=== PATIENT | female | born 1990 | race African-American/Black ===

== ENCOUNTER 2021-11-09 08:20 | Outpatient (RCR) | payer OTHER, SELFPAY ==
[2021-11-09] MEDS: RHO(D) IMMUNE GLOBULIN 300 MCG/2 ML SYRINGE IM (17:11)
== END 2022-01-27 08:38 | disposition home or self-care (01) ==
LOC: ANHLAB 08:20
PROVIDERS: PCP Nurse Practitioner; Visit Provider Obstetrics & Gynecology
DX: Z34.90 Encounter for supervision of normal pregnancy, unspecified, unspecified trimester (principal); Z3A.00 Weeks of gestation of pregnancy not specified
CPT/HCPCS: 36415; 85461; 90384; 96372; J2790

== ENCOUNTER 2022-01-16 19:54 | Inpatient (IN) | payer OTHER, SELFPAY ==
[2022-01-16] VITALS (41 sets, daily range): BP systolic 79–134; BP diastolic 29–102; PULSE 57–195; TEMP 36.3; O2SAT 98–100; BMI 39.5
[2022-01-16] MEDS: LACTATED RINGERS 1,000 ML 125 ML IV CONT (21:44)
[2022-01-16 21:55] LABS: Basophils Absolute Auto 0.1 K/mm3 (0.0-0.1); Basophils Percent Auto 0.5 % (0.2-1.2); Eosinophils Percent Auto 0.3 % (0-4.4); Hematocrit 35.5 % (37.0-47.0); Hemoglobin 11.7 g/dL (12.0-15.0); Immature Granulocyte Absolute 0.08 K/mm3 (0.00-0.031); Immature Granulocyte Percent A 0.7 % (0-0.5); Lymphocytes Absolute Auto 1.94 K/mm3 (0.9-3.2); Lymphocytes Percent Auto 16.2 % (18.3-44.2); Mean Corpuscular Volume 84.9 fl (80-100); Mean Platelet Volume 10.3 fl (7.4-10.4); Monocytes Absolute Auto 0.9 K/mm3 (0.1-0.6); Monocytes Percent Auto 7.8 % (2.6-8.5); Neutrophils Percent Auto 74.5 % (45.5-73.1); Platelet Count Result 261 k/mm3 (150-375); Red Blood Count 4.18 M/mm3 (4.2-5.4); Red Cell Distribution Width 12.6 % (11.5-14.5)
--- NOTE | 2022-01-16 22:01 | P.PNAN_ITS ---
Anes - Eval Pre Procedure Date/Time: 01/16/22 22:01 Pre Op Diagnosis: Contractions Patient Data Age: 31 Gender: F Height: Weight: Last Vital Signs Pulse 62 01/16/22 21:46 BP 120/99 H 01/16/22 21:46 Allergies Allergy/AdvReac Type Severity Reaction Status Date / Time No Known Allergies Allergy Verified 01/01/22 14:05 Laboratory Tests 01/16/22 01/16/22 01/16/22 21:46 21:46 21:49 WBC Pending RBC Pending Hgb Pending Hct Pending MCV Pending MCH Pending MCHC Pending RDW Pending Plt Count Pending MPV Pending Immature Gran % (Auto) Pending Neut % (Auto) Pending Lymph % (Auto) Pending [place] % (Auto) Pending Eos % (Auto) Pending Baso % (Auto) Pending Lymph # (Auto) Pending [place] # (Auto) Pending Eos # (Auto) Pending Baso # (Auto) Pending Abs Immat Gran (auto) Pending Absolute Neuts (auto) Pending Absolute Nucleated RBC Pending Nucleated RBC % Pending Sodium Pending Potassium Pending Chloride Pending Carbon Dioxide Pending Anion Gap Pending BUN Pending Creatinine Pending Estim Creat Clear Calc Pending Estimated GFR Pending Glucose Pending Uric Acid Pending Calcium Pending Total Bilirubin Pending AST Pending ALT Pending Alkaline Phosphatase Pending Total Protein Pending Albumin Pending RPR Pending Patient hx anesthesia problems: none Family hx anesthesia problems: none Results Review: All pre-operative results and documents have been reviewed as part of the pre- operative evaluation. PMF Family History Family History Mother Hypothyroidism Grandparent Liver cancer Diabetes mellitus Hypertension Social History Social History Substance use: never Spiritual care concerns: No Exam Day of Procedure 01/16/22 22:01 Patient weight: obese Heart: regular rate and rhythm Lungs: normal air movement Airway: Mallampati scale Neurological: alert and oriented
[2022-01-16 22:08] LABS: Alanine Aminotransferase 37 U/L (6-35); Albumin Level 3.9 g/dL (3.5-5.1); Alkaline Phosphatase 187 U/L (38-126); Anion Gap 7 mmol/L (8-16); Aspartate Amino Transferase 29 U/L (14-36); Bilirubin,Total 0.2 mg/dL (0.2-1.3); Blood Urea Nitrogen 10 mg/dL (7-17); Calcium 9.1 mg/dL (8.4-10.2); Carbon Dioxide 19 mmol/L (22-30); Chloride 106 mmol/L (98-107); Estimated Glomerular Filt Rate > 60; Glucose 94 mg/dL (65-110); Potassium 3.8 mmol/L (3.4-5.0); Sodium 132 mmol/L (137-145); Uric Acid 3.4 mg/dL (2.5-7.5)
--- NOTE | 2022-01-16 23:16 | LDADM ---
This patient, Farzaneh Johnson, was admitted to Labor/Delivery/Recovery 106 on 01/16/22 at 19:54. Plans for labor, pain management and were discussed with patient. Patient/family oriented to hospital policies and general routines including ID bracelet, bed and alarms, visiting hours, pain management, procedures, bathroom and other care routines, personal items, smoking policy, room service/diet and guest tray routines, infant security routines, and visiting hours. Patient/Family are encouraged to report perceived risks to care and to ask questions if they do not understand what they are told or what they should do. See OBIX for further documentation.
[2022-01-17] VITALS (53 sets, daily range): BP systolic 93–155; BP diastolic 37–110; PULSE 56–204; RESP 14–18; TEMP 36.3–36.8; O2SAT 98–100
[2022-01-17] MEDS: LACTATED RINGERS 1,000 ML 125 ML IV CONT (00:34)
[2022-01-17] MEDS: OXYTOCIN 30 UNITS/NS 500 ML 30 UNITS/500 ML BAG 999 UNITS IV CONT (02:15)
--- NOTE | 2022-01-17 02:21 | WPDOBADMIT ---
Obstetrics - Admit Note Admission Note: record reviewed. Additions to the history and/or subsequent changes in the physical findings follow. 31 y/o at 38 5/7 weeks who presented with contractions. Labor was diagnosed. She received an epidural for pain control. GBS neg. Had SROM with clear fluid. AVSS (bp 130-150/80-90) NST reactive TOCO: contractions every 2-4 min ABD soft, nontender, gravid, vertex EXT nontender Cervix C/+2 A: IUP at term with labor. P: Begin pushing.
--- NOTE | 2022-01-17 02:27 | P.PCNOB_ITS ---
OB - Delivery Note Procedure Delivery date: 01/17/22 Procedure: Induction method: None Delivery monitor: External FHT and External Uterine Route of delivery: Episiotomy description: None Laceration Description: None Specimen: Yes (cord blood) Quantitative Blood Loss (ml): 80 Anesthesia type: Epidural Disposition: PACU Complications: None Narrative: 31 y/o at 38 5/7 weeks gestation who presented to the hospital with contractions. Labor was diagnosed. She received an epidural for pain control. Her labor progressed and her cervix dilated completely. She pushed with good effort and delivered the infant's head to the perineum. A loose nuchal cord x 2 was reduced and the body delivered. The nose and mouth were bulb suctioned. After a delay, the cord was clamped and cut. The was handed off the field. Cord blood was collected. The placenta delivered spontaneously and was grossly normal in appearance. The usual 3 vessel cord was noted. There were no lacerations. Excellent hemostasis resulted. Needle and instrument counts were correct. The patient was taken to recovery room in stable condition. The infant went to the nursery in stable condition. I was present and scrubbed for the entire delivery. [place] Baby Date of : 01/17/22 Time of : 02:08 Weeks of gestation at delivery: 38 gender: Female Weight (pounds): 6 Weight (ounces): 6 presentation: vertex position: Left Occiput Anterior Placenta delivery description: Spontaneous and Normal Configuration Cord Vessel Description: 3 Vessels, Nuchal Cord (x2) and Delayed Cord Clamping score one minute: 8 score five minutes: 9
--- NOTE | 2022-01-17 02:31 | PM.OBDSVD ---
DS: Admitting Diagnosis Discharge Date 01/18/22 Admitting Diagnosis IUP at 38 5/7 weeks Labor DS: Discharge Diagnosis Discharge Diagnosis (1) (normal spontaneous vaginal delivery): Code(s): O80 - Encounter for full-term uncomplicated delivery Status: Acute OB - DS: Summary OB Procedures : None OB Procedures Intrapartum: Spontaneous Vag Delivery OB Procedures: : RHo (D) lg Time Spent with Patient Time attestation: Total time spent providing and/or coordinating discharge services: DS: Data Data Completed and Pending Labs on day of discharge: Labs from last 24 hours 01/16/22 01/16/22 01/16/22 21:49 21:46 21:46 WBC RBC Hgb Hct MCV MCH MCHC RDW Plt Count MPV Immature Gran % (Auto) Neut % (Auto) Lymph % (Auto) [place] % (Auto) Eos % (Auto) Baso % (Auto) Lymph # (Auto) [place] # (Auto) Eos # (Auto) Baso # (Auto) Abs Immat Gran (auto) Absolute Neuts (auto) Absolute Nucleated RBC Nucleated RBC % Sodium 132 L Potassium 3.8 Chloride 106 Carbon Dioxide 19 L Anion Gap 7 L BUN 10 Creatinine 0.50 L Estim Creat Clear Calc Not Reportable Estimated GFR > 60 Glucose 94 Uric Acid 3.4 Calcium 9.1 Total Bilirubin 0.2 AST 29 ALT 37 H Alkaline Phosphatase 187 H Total Protein 7.0 Albumin 3.9 RPR Pending Blood Type O Negative Antibody Screen Positive Antibody Identification Inconclusive Antigen Identification Cancelled STEPHANIE, IgG Interpret Negative STEPHANIE, Poly Interpret Negative STEPHANIE, Complement Interp Not Performed 01/16/22 21:46 WBC 12.0 H RBC 4.18 L Hgb 11.7 L Hct 35.5 L MCV 84.9 MCH 28.0 MCHC 33.0 RDW 12.6 Plt Count 261 MPV 10.3 Immature Gran % (Auto) 0.7 H Neut % (Auto) 74.5 H Lymph % (Auto) 16.2 L [place] % (Auto) 7.8 Eos % (Auto) 0.3 Baso % (Auto) 0.5 Lymph # (Auto) 1.94 [place] # (Auto) 0.9 H Eos # (Auto) 0.0 Baso # (Auto) 0.1 Abs Immat Gran (auto) 0.08 H Absolute Neuts (auto) 9.0 H Absolute Nucleated RBC 0.0 Nucleated RBC % 0.0 Sodium Potassium Chloride Carbon Dioxide Anion Gap BUN Creatinine Estim Creat Clear Calc Estimated GFR Glucose Uric Acid Calcium Total Bilirubin AST ALT Alkaline Phosphatase Total Protein Albumin RPR Blood Type Antibody Screen Antibody Identification Antigen Identification STEPHANIE, IgG Interpret STEPHANIE, Poly Interpret STEPHANIE, Complement Interp Discharge Plan Discharge Attending physician on discharge: Joe Frank Discharging Clinician: Aleks Wise Patient Disposition: Home, Self-Care Activity: pelvic rest Diet: regular Discharge Instructions: Call or return if temperature above 100.4? F, increased abdominal pain, increased vaginal bleeding or any new problems. Stand Alone Forms: General Discharge Information Follow-up/Referrals: Joe Frank MD [Physician] - 6 Weeks Discharge Medications: New ibuprofen 600 mg tablet 600 mg PO Q6H PRN (Reason: cramps) Qty: 30 0RF Continued PNV cmb#95-ferrous fumarate-FA [] 28 mg iron- 800 mcg tablet 800 tablet PO 1XD Date of admission: 01/16/22 19:54 Primary Care Provider: YoshiAnneliese Admitting Provider: Joe Frank Attending physician on admission: Joe Frank Condition: Stable
[2022-01-17] MEDS: OXYTOCIN 30 UNITS/NS 500 ML 30 UNITS/500 ML BAG 125 UNITS IV CONT (02:48)
[2022-01-17] MEDS: BENZOCAINE 20% AER SPR (*SP) 56 GM CAN 1 SPRAY TOPICAL (04:38)
[2022-01-17] MEDS: WITCH HAZEL 40 PADS 1 PAD TOPICAL (04:38)
--- NOTE | 2022-01-17 05:38 | OBPPTRN ---
01/17/2022 at 0454. Patient transferred to post room #281 in wheelchair. Support person present. Oriented to unit, room, information board, rooming in, admission packet and security measures. Patient verbalizes understanding.
[2022-01-17 07:33] LABS: Rapid Plasma Reagin Non-Reactive (NonReactive)
[2022-01-17] MEDS: IBUPROFEN 600 MG TABLET PO ×3 (07:37→21:06)
[2022-01-17] MEDS: MULTIVIT/MIN/PREN/FOL AC/IRON TABLET 1 TAB PO (07:37)
[2022-01-17] MEDS: DOCUSATE SODIUM 100 MG CAPSULE PO (07:37)
--- NOTE | 2022-01-17 13:13 | PC.NURSE ---
[id number] Mother verbalizes she is able to independently latch with appropriate positioning/alignment. She states fees tugging any nipple discomfort with exception to soreness, is responsively . is currently meeting outcomes for weight, output, jaundice and feeding frequencies of 8-12 times in 24 hours. Mother declines any additional assistance/education at this time but is interested in calling for a latch assessment and was encouraged to call. Mother is encouraged to call for assistance if her doesn?t latch or there is discomfort with latching. Mother voiced understanding of information shared and mom and baby guide reviewed for additional resource information . Reported to the primary RN.
--- NOTE | 2022-01-17 15:13 | PC.NURSE ---
[id number] Introductions were made. Infant placed skin to skin but sleepy and reluctant to breastfeed related to mother stating infant has just fed not too long ago. Mother will call for a latch assessment at the next feeding. Mother verbalizes she is able to independently latch with appropriate positioning/alignment. She denies any nipple discomfort and is responsively . Reported to the primary RN. [id number] Consulted with patient to assess needs related to . Mother led conversation with her experience with feeding baby so far and shares her experience her 5 year old for 17 months. Mother works well with her with encouragement. Reviewed working with , breast, nipples and how to protect the nipples with an optimal deep latch, good positioning, and good hand washing. Encouraged understanding the benefits of skin to skin, responding to feeding cues, frequencies of feeding 8-12 times in 24 hours (approximately 2-3 hours), duration of feedings, milk production, intake/output feeding sheet and signs of adequate intake encouraging swallowing at the breast. Reviewed positioning and alignment, supporting breast, off-centered (asymmetrical latch) and leading with the chin with big open wide gape. latched optimally to the right breast in football position. Education given to mother of how to visualize suck/swallow ratios and drinking at the breast. was able to maintain latch without discomfort to mother. Nipple care reviewed with optimal latch and good positioning. Resources used to facilitate learning were used from the mom and baby guide. Mother voiced understanding of the education shared, calling for assistance if the does not latch or if there is discomfort with . Reported to the primary RN.
[2022-01-18 00:30] VITALS: BP 104/63; PULSE 66; RESP 16; TEMP 36.7; O2SAT 99
[2022-01-18 05:32] LABS: Hematocrit 31.3 % (37.0-47.0); Hemoglobin 10.7 g/dL (12.0-15.0)
[2022-01-18 07:50] VITALS: BP 122/70; PULSE 69; RESP 18; TEMP 36.6; O2SAT 100
[2022-01-18] MEDS: MULTIVIT/MIN/PREN/FOL AC/IRON TABLET 1 TAB PO (09:11)
[2022-01-18] MEDS: IBUPROFEN 600 MG TABLET PO ×2 (09:12→15:23)
[2022-01-18] MEDS: DOCUSATE SODIUM 100 MG CAPSULE PO (09:12)
--- NOTE | 2022-01-18 13:30 | PM.OBPNVD ---
OB - PN: Subj Subjective Date/time seen: 01/18/22 13:30 Narrative: Pain OK. Would like to go home. OB - PN: Obj Data Labs CBC & Chem 7: 01/18/22 05:17 01/16/22 21:49 Labs: Laboratory Results - last 24 hr 01/18/22 05:17 Hgb 10.7 L Hct 31.3 L OB - PN A/P Plan Comments: A: PPD#1, doing well. P: Home to f/u 6 weeks. Exam Psych: Other: AVSS ABD soft, nontender, fundus firm EXT nontender
--- NOTE | 2022-01-18 15:18 | PC.NURSE ---
[id number] Mother verbalizes she is able to independently latch with appropriate positioning/alignment and is demonstrating at this time on the right breast using football positioning. She denies any nipple discomfort and is responsively . Infant is currently meeting outcomes for weight, output, jaundice and feeding frequencies of 8-12 times in 24 hours. Mother is feeding appropriately for growth of and understands stimulating infant to eat if needed. has had appropriate feedings in the last 24 hours meets the outcomes for weight, output and jaundice at this time. Mother states she is confident to continue effectively her infant at home or when to call for assistance and denies any additional assistance or education at this time. Reinforced understanding of milk production, transition of milk, signs of adequate intake, prevention/relief of engorgement, responsive after visualizing feeding cues, the different methods of stimulating infant to breastfeed 2-3 hours after the start of the last feeding, community resources, medication information reviewed per [employer] and when to call a provider using the resource of the mom and baby guide/[facility] website. Mother voiced understanding of the education shared. Reported to the primary RN.
[2022-01-18] MEDS: WITCH HAZEL 40 PADS 1 PAD TOPICAL (15:23)
--- NOTE | 2022-01-18 18:54 | PC.NURSE ---
1400 Patient viewed the discharge video Mother & Baby Care, The First Two Weeks . Patient was given the opportunity and encouraged to ask questions. Patient verbalized understanding of information shared and has been given the mother/baby guide for home reference.
== END 2022-01-18 15:57 | disposition home or self-care (01) | DRG 807 ==
LOC: ANHLDR 01-17 02:32 → ANHOB2 01-18 14:12 → ANHLDR 01-19 12:24 → ANHOB2 01-19 12:24
PROVIDERS: Admitting Provider Obstetrics & Gynecology; PCP Nurse Practitioner; Visit Provider Obstetrics & Gynecology
DX: O69.81X0 Labor and delivery complicated by cord around neck, without compression, not applicable or unspecified (principal); Z37.0 Single live birth; O76 Abnormality in fetal heart rate and rhythm complicating labor and delivery; Z3A.38 38 weeks gestation of pregnancy
CPT/HCPCS: 36415; 80053; 84550; 85014; 85018; 85025; 86592; 86850; 86880; 86900; 86901; A9270; J2590; J2795; J7120